=== PATIENT | female | born 1955 | race Caucasian/White ===

== ENCOUNTER → 2016-08-12 | Outpatient (CLI) | payer BC ==
--- NOTE | 2016-08-12 22:21 | US ---
EXAMINATION TYPE: US kidneys/renal and bladder DATE OF EXAM: 08/12/2016 5:07 PM COMPARISON: NONE CLINICAL HISTORY: 61-year-old female with abnormal renal functions TECHNIQUE: Multiple sonographic images of the kidneys and bladder were acquired. FINDINGS: Right Kidney: 9.3 x 4.3 x 4.0 cm without hydronephrosis. Left Kidney: 9.2 x 5.2 x 3.7 cm without hydronephrosis. There is a tiny 9 mm lower pole cyst. Bladder: Underdistention of the bladder limits its evaluation. Bilateral Jets seen: Yes. Post Void Residual Volume: 17.4ml Normal Post Void Residual: yes IMPRESSION: 1. No hydronephrosis. 2. Tiny 9 mm left lower pole renal cyst. 3. Both ureteral jets are visualized. There is some post void residual volume in the bladder but the volume falls within the normal range (<50 mL).
== END | disposition home or self-care (01) ==
LOC: RADUSWWP 16:02
PROVIDERS: ATTEND Family Medicine
DX: N28.1 Cyst of kidney, acquired (principal); N18.3 Chronic kidney disease, stage 3 (moderate)
CPT/HCPCS: 76770

== ENCOUNTER → 2016-10-01 | Outpatient (CLI) | payer BC ==
[2016-10-01 13:46] LABS: CH 27.9; CHCM 32.4; HDW 2.63; HGB 12.3 gm/dL (11.4-16.0); MCHC 32.5 g/dL (31.0-37.0); MCV 86.4 fL (80.0-100.0); Mean Platelet Volume 6.7; RDW 12.9 % (11.5-15.5); WBC 2.8 k/uL (3.8-10.6)
[2016-10-01 13:58] LABS: ALT 31 U/L (9-52); AST 29 U/L (14-36); Alkaline Phosphatase 46 U/L (38-126); Anion Gap 15 mmol/L; Blood Urea Nitrogen 28 mg/dL (7-17); Calcium 10.8 mg/dL (8.4-10.2); Carbon Dioxide 25 mmol/L (22-30); Chloride 99 mmol/L (98-107); Glucose 196 mg/dL (74-99); Non-African American GFR(MDRD) 50 (>60 ml/min/1.73 sqM); Phosphorous 3.7 mg/dL (2.5-4.5); Potassium 4.2 mmol/L (3.5-5.1); Sodium 139 mmol/L (137-145); Total Bilirubin 0.6 mg/dL (0.2-1.3); Total Protein 7.9 g/dL (6.3-8.2)
[2016-10-01 14:02] LABS: Appearance,Urine Cloudy (Clear); Bilirubin,Urine Negative (Negative); Glucose,Urine (UA) 3+ (Negative); Ketones,Urine Negative (Negative); Leukocyte Esterase,Urine Small (Negative); Mucus,Urine Rare /hpf; Nitrite,Urine Negative (Negative); PH, Urine 6.5 (5.0-8.0); Particle Count 7827; Protein,Urine Negative (Negative); RBC,Urine 3 /hpf (0-5); UA Billing (MACRO vs. MICRO) MICRO; Urobilinogen,Urine <2.0 mg/dL (<2.0); WBC,Urine 4 /hpf (0-5)
== END | disposition home or self-care (01) ==
LOC: LABWHC1 13:13
PROVIDERS: ATTEND Internal Medicine Nephrology
DX: D64.9 Anemia, unspecified (principal); E83.39 Other disorders of phosphorus metabolism; N39.0 Urinary tract infection, site not specified
CPT/HCPCS: 36415; 80053; 81001; 84100; 85027

== ENCOUNTER → 2016-12-21 | Outpatient (CLI) | payer BC ==
--- NOTE | 2016-12-21 12:23 | MR ---
EXAMINATION TYPE: MR shoulder LT wo con DATE OF EXAM: 12/21/2016 7:42 AM COMPARISON: NONE HISTORY: 61-year-old female with left shoulder pain TECHNIQUE: Multiplanar, multisequence imaging of the left shoulder is performed without contrast. FINDINGS: Long head biceps tendon appears intact and appropriately situated along the bicipital groove. Subscapularis tendon is intact. Moderate degenerative joint space narrowing and marginal spurring at the acromioclavicular joint. The re is preserved fat plane with the underlying myotendinous junction of the supraspinatus. There is slight inhomogeneous signal of the supraspinatus tendon. There appears to be minimal articul ar sided fraying proximal to the footprint, coronal image 11 and sagittal T2 FS image 12. There is no high-grade partial or full-thickness tear of either the supraspinatus or infraspinatus tendons. There is a small effusion within the subacromial/subdeltoid bursa, thickening of the coracohumeral li gament at 3.3 mm, edematous change in the adjacent rotator cuff interval, and edematous thickening of the axillary recess. Physiologic glenohumeral joint effusion. The glenohumeral joint remains intact. Possible small tear of the posterior inferior glenoid labrum, axial image 10. No paralabral cyst. No atrophy of the rotator cuff musculature. No os acromiale or Hill-Sachs deformity. No suspicious bone marrow replacement. IMPRESSION: 1. Thickening of the coracohumeral ligament, edematous change in the adjacent rotator cuff interval, edematous thickening of the axillary recess, and mild subacromial/subdeltoid bursitis. In the absence of injury, constellation of findings can be seen in the setting of adhesive capsulitis. Clinically c orrelate. 2. Some articular sided fraying of the supraspinatus tendon proximal to the footprint. No high-grade partial or full-thickness rotator cuff tear. 3. Moderate AC joint osteoarthrosis.
== END | disposition home or self-care (01) ==
LOC: RADMRIMAIN 07:04
PROVIDERS: ATTEND Family Medicine
DX: M19.012 Primary osteoarthritis, left shoulder (principal); M24.212 Disorder of ligament, left shoulder; R60.0 Localized edema

== ENCOUNTER → 2016-12-30 | Outpatient (CLI) | payer BC ==
[2016-12-30 08:22] LABS: Basophils % (A) 1 %; CH 27.8; Eosinophils # (A) 0.1 k/uL (0-0.7); Eosinophils % (A) 5 %; HCT 34.6 % (34.0-46.0); HDW 2.72; HGB 11.3 gm/dL (11.4-16.0); Luc # (Auto) 0.11; Luc % (Auto) 4; Lymphocytes # (A) 0.9 k/uL (1.0-4.8); Lymphocytes % (A) 29 %; MCH 28.6 pg (25.0-35.0); MCHC 32.7 g/dL (31.0-37.0); MCV 87.3 fL (80.0-100.0); Mean Platelet Volume 6.5; Monocytes # (A) 0.2 k/uL (0-1.0); Monocytes % (A) 8 %; Neutrophils # (A) 1.6 k/uL (1.3-7.7); Neutrophils % (A) 54 %; RBC 3.97 m/uL (3.80-5.40); RDW 13.9 % (11.5-15.5); WBC (Perox) 3.11
[2016-12-30 08:30] LABS: Appearance,Urine Clear (Clear); Bilirubin,Urine Negative (Negative); Glucose,Urine (UA) Negative (Negative); Ketones,Urine Negative (Negative); Leukocyte Esterase,Urine Negative (Negative); Nitrite,Urine Negative (Negative); Protein,Urine Negative (Negative); Specific Gravity,Urine 1.012 (1.001-1.035); UA Billing (MACRO vs. MICRO) CHEM; Urobilinogen,Urine <2.0 mg/dL (<2.0)
[2016-12-30 11:42] LABS: Anion Gap 11 mmol/L; Blood Urea Nitrogen 22 mg/dL (7-17); Calcium 9.8 mg/dL (8.4-10.2); Carbon Dioxide 24 mmol/L (22-30); Chloride 103 mmol/L (98-107); Glucose 163 mg/dL (74-99); Iron 68 ug/dL (37-170); Magnesium 1.2 mg/dL (1.6-2.3); Non-African American GFR(MDRD) 56 (>60 ml/min/1.73 sqM); Phosphorous 3.4 mg/dL (2.5-4.5); Potassium 4.9 mmol/L (3.5-5.1); Sodium 138 mmol/L (137-145); Uric Acid 4.9 mg/dL (3.7-7.4)
[2016-12-30 11:51] LABS: % Iron Saturation 16.3 % (20-50); Total Iron Binding Capacity 417 ug/dL (265-497)
== END | disposition home or self-care (01) ==
LOC: LABWHC1 07:25
PROVIDERS: ATTEND Internal Medicine Nephrology
DX: N18.3 Chronic kidney disease, stage 3 (moderate) (principal); D64.9 Anemia, unspecified; E55.9 Vitamin D deficiency, unspecified; E21.3 Hyperparathyroidism, unspecified; M10.9 Gout, unspecified; N39.0 Urinary tract infection, site not specified
CPT/HCPCS: 36415; 80048; 81003; 82306; 82728; 83540; 83550; 83735; 83970; 84100; 84165; 84550; 85025; 86335

== ENCOUNTER → 2017-06-11 | Outpatient (CLI) | payer BC ==
[2017-06-11 13:27] LABS: Anion Gap 13 mmol/L; Blood Urea Nitrogen 19 mg/dL (7-17); Calcium 9.7 mg/dL (8.4-10.2); Carbon Dioxide 22 mmol/L (22-30); Chloride 103 mmol/L (98-107); Glucose 113 mg/dL (74-99); Non-African American GFR(MDRD) >60 (>60 ml/min/1.73 sqM); Potassium 4.2 mmol/L (3.5-5.1); Sodium 138 mmol/L (137-145)
--- NOTE | 2017-06-11 14:26 | CT ---
EXAMINATION TYPE: CT angio chest DATE OF EXAM: 06/11/2017 COMPARISON: Chest radiograph dated 11/17/[address] chest dated 08/16/2012. HISTORY: Patient complains of difficulty breathing and recent diagnosis of bronchitis. History of marybeth coidosis. CT DLP: 253.6 mGycm. Automated Exposure Control for Dose Reduction was Utilized. CONTRAST: CTA scan of the thorax is performed with IV Contrast, patient injected with 100 mL of Omnipaque 350, pulmonary embolism protocol. MIP Images are created on CT scanner and reviewed. FINDINGS: LUNGS: The lungs are grossly clear, there is no concerning parenchymal mass or nodule identified. 5 mm pulmonary nodule within the right lower lobe on series 5 image 60 has not enlarged in comparison t o the exam of 08/06/2012 and should be considered benign. Left upper lobe 4 mm pulmonary nodule and adj acent 2 mm pulmonary nodule are seen on series 5 image 26 and 25. These are not definitely present on the prior examination. Areas of pleural-parenchymal scarring within the left upper lobe are unchange d from the prior. Perifissural nodule within the right upper lobe and 4 mm is also unchanged dating b ack to 2012 and should be considered benign. There is no pleural effusion or pneumothorax seen. The tracheobronchial tree is patent. MEDIASTINUM: There is satisfactory enhancement of the pulmonary artery and its branches, there is no CT evidence for pulmonary embolism. Subcarinal and right hilar lymph nodes are mildly enlarged measur ing 1.0 and 1.1 cm in short axis. Small low-density pericardial effusion measures 7 mm in greatest th ickness. No cardiomegaly or pericardial effusion is seen. OTHER: There is a moderate-sized hiatal hernia with distal esophageal mucosal thickening, partially r elated to incomplete distention but also could be related to esophagitis from gastroesophageal reflux given the size of the more distal hiatal hernia. There is a macronodular contour of the hepatic surf yvonne, favored to represent underlying hepatocellular disease. Cholecystectomy clips are partially visu alized. Dystrophic calcifications and surgical clips are seen within the right breast. There is an ex aggerated thoracic kyphosis and multilevel mild degenerative changes of the thoracic spine. IMPRESSION: 1. No evidence of pulmonary embolus. 2. No focal consolidation or pleural effusion within the lungs. 3. Mildly prominent mediastinal adenopathy and few scattered subcentimeter parenchymal nodules as wel l as mild interstitial prominence may relate to the patient's underlying history of sarcoidosis state d on the chest radiograph 11/17/2016. 4. Macronodular contour the liver compatible with underlying hepatic cirrhosis.
== END | disposition home or self-care (01) ==
LOC: RADCTMAIN 12:37
PROVIDERS: ATTEND Internal Medicine Critical Care Medicine
DX: R59.0 Localized enlarged lymph nodes (principal); R91.1 Solitary pulmonary nodule; J98.4 Other disorders of lung; Z88.0 Allergy status to penicillin; Z88.6 Allergy status to analgesic agent
CPT/HCPCS: 80048; 71275; 36415; Q9967

== ENCOUNTER → 2017-11-19 | Outpatient (CLI) | payer BC ==
[2017-11-19 10:38] LABS: Amorphous Sediment,Urine Rare /hpf; Appearance,Urine Clear (Clear); Bilirubin,Urine Negative (Negative); Blood,Urine Negative (Negative); Color,Urine Light Yellow; Glucose,Urine (UA) Negative (Negative); Ketones,Urine Negative (Negative); Leukocyte Esterase,Urine Trace (Negative); Mucus,Urine Rare /hpf; Nitrite,Urine Negative (Negative); Protein,Urine Negative (Negative); Specific Gravity,Urine 1.009 (1.001-1.035); Squamous Epithelial Cell,Urine <1 /hpf (0-4); Urobilinogen,Urine <2.0 mg/dL (<2.0); WBC,Urine 2 /hpf (0-5)
[2017-11-19 10:40] LABS: Basophils % (A) 1 %; Eosinophils # (A) 0.1 k/uL (0-0.7); Eosinophils % (A) 3 %; HCT 37.6 % (34.0-46.0); HGB 12.2 gm/dL (11.4-16.0); Lymphocytes # (A) 0.9 k/uL (1.0-4.8); Lymphocytes % (A) 24 %; MCH 27.5 pg (25.0-35.0); MCHC 32.4 g/dL (31.0-37.0); MCV 85.1 fL (80.0-100.0); Mean Platelet Volume 6.5; Monocytes # (A) 0.3 k/uL (0-1.0); Monocytes % (A) 7 %; Neutrophils # (A) 2.3 k/uL (1.3-7.7); Neutrophils % (A) 61 %; Platelet Count 399 k/uL (150-450); RBC 4.41 m/uL (3.80-5.40); RDW 13.5 % (11.5-15.5); WBC 3.8 k/uL (3.8-10.6)
[2017-11-19 10:47] LABS: Albumin 4.6 g/dL (3.5-5.0); Calcium 10.3 mg/dL (8.4-10.2); Magnesium 1.1 mg/dL (1.6-2.3); Potassium 4.7 mmol/L (3.5-5.1); Total Bilirubin 0.3 mg/dL (0.2-1.3); Uric Acid 4.9 mg/dL (3.7-7.4)
[2017-11-19 11:03] LABS: T4, Free (Free Thyroxine) 1.37 ng/dL (0.78-2.19)
[2017-11-19 17:11] LABS: Iron Saturation 11.42 (12.00-45.00)
[2017-11-19 17:19] LABS: Hemoglobin A1C 7.6 % (4.0-6.0)
[2017-11-19 17:20] LABS: Vitamin D 25 Hydroxy 38.8 ng/mL (30.0-100.0)
[2017-11-19 17:53] LABS: Parathyroid Hormone Intact 21.4 pg/mL (14.0-72.0)
== END | disposition home or self-care (01) ==
LOC: LABWHC1 09:49
PROVIDERS: ATTEND Nurse Practitioner Family
DX: E55.9 Vitamin D deficiency, unspecified (principal); N39.0 Urinary tract infection, site not specified; M10.9 Gout, unspecified; E21.3 Hyperparathyroidism, unspecified; N17.9 Acute kidney failure, unspecified; E61.1 Iron deficiency; D64.9 Anemia, unspecified; E78.4 Other hyperlipidemia; J44.9 Chronic obstructive pulmonary disease, unspecified; F32.1 Major depressive disorder, single episode, moderate; E11.65 Type 2 diabetes mellitus with hyperglycemia
CPT/HCPCS: 36415; 80053; 80061; 81001; 82306; 82728; 83036; 83540; 83550; 83735; 83970; 84100; 84439; 84443; 84550; 85025

== ENCOUNTER → 2019-03-28 | Outpatient (CLI) | payer BC ==
[2019-03-28 08:08] LABS: Basophils % (A) 1 %; Eosinophils # (A) 0.2 k/uL (0-0.7); Eosinophils % (A) 3 %; HCT 37.6 % (34.0-46.0); HGB 12.2 gm/dL (11.4-16.0); Lymphocytes # (A) 1.4 k/uL (1.0-4.8); Lymphocytes % (A) 26 %; MCH 27.7 pg (25.0-35.0); MCHC 32.5 g/dL (31.0-37.0); Mean Platelet Volume 6.7; Monocytes # (A) 0.5 k/uL (0-1.0); Monocytes % (A) 9 %; Neutrophils % (A) 57 %; Platelet Count 429 k/uL (150-450); RBC 4.42 m/uL (3.80-5.40); RDW 14.5 % (11.5-15.5); WBC 5.3 k/uL (3.8-10.6)
--- NOTE | 2019-03-28 08:27 | XR ---
EXAMINATION TYPE: XR knee complete RT DATE OF EXAM: 03/28/2019 COMPARISON: NONE HISTORY: Right knee pain TECHNIQUE: Four views are submitted. FINDINGS: There is narrowing of the medial compartment of the knee joint with a chronic appearing deformity of the medial tibial plateau. Hypertrophic change and narrowing of patellofemoral joint. Small amount of fluid in the suprapatellar bursa. Osseous structures are intact. No acute fracture seen. IMPRESSION: 1. Osteoarthritis. Findings are suggestive of prior trauma involving the medial tibial plateau.
[2019-03-28 12:05] LABS: T4, Free (Free Thyroxine) 1.3 ng/dL (0.80-1.80)
[2019-03-28 12:47] LABS: Hemoglobin A1C 7.2 % (4.0-6.0)
[2019-03-28 12:48] LABS: African American GFR (CKD) 60.6 (60.0-200.0); Albumin 4.5 g/dL (3.80-4.90); Albumin/Globulin Ratio 2.5 (1.60-3.17); Anion Gap 11.8 mmol/L (4.00-12.00); BUN/Creat Ratio 28.18 Ratio (12.00-20.00); Calcium 10.2 mg/dL (8.7-10.3); Carbon Dioxide 22.2 mmol/L (21.6-31.8); Chol/HDL Ratio 3.15; Globulin 1.8 g/dL (1.6-3.3); LDL Cholesterol,Calculated 58.4 mg/dL (0.0-131.0); Potassium 5.6 mmol/L (3.5-5.5); Total Bilirubin 0.2 mg/dL (0.2-1.2); Total Protein 6.3 g/dL (6.2-8.2); VLDL Calculation 40.6 mg/dL (5.00-40.00)
[2019-03-28 12:52] LABS: Magnesium 1.4 mg/dL (1.5-2.4)
== END | disposition home or self-care (01) ==
LOC: LABWHC1 07:28
PROVIDERS: ATTEND Family Medicine
DX: M17.11 Unilateral primary osteoarthritis, right knee (principal); Z00.00 Encounter for general adult medical examination without abnormal findings; I10 Essential (primary) hypertension
CPT/HCPCS: 36415; 80053; 80061; 83036; 83735; 84439; 84443; 85025

== ENCOUNTER → 2019-03-28 | Outpatient (CLI) | payer BC | END | disposition home or self-care (01) | LOC: RADXRMAIN 07:33 | PROVIDERS: ATTEND Family Medicine | DX: Z53.9 Procedure and treatment not carried out, unspecified reason (principal) ==

== ENCOUNTER → 2019-06-12 | Outpatient (CLI) | payer MEDICARE, BC ==
[2019-06-12 08:45] LABS: HCT 35.6 % (34.0-46.0); HGB 11.3 gm/dL (11.4-16.0); MCH 27.6 pg (25.0-35.0); MCHC 31.6 g/dL (31.0-37.0); MCV 87.5 fL (80.0-100.0); Mean Platelet Volume 6.1; Platelet Count 388 k/uL (150-450); RBC 4.07 m/uL (3.80-5.40); RDW 14.4 % (11.5-15.5); WBC 3.4 k/uL (3.8-10.6)
[2019-06-12 09:29] LABS: Potassium 5.1 mmol/L (3.5-5.1)
== END | disposition home or self-care (01) ==
LOC: LABPAT 08:00
PROVIDERS: ATTEND Internal Medicine Cardiovascular Disease
DX: Z01.812 Encounter for preprocedural laboratory examination (principal); I25.10 Atherosclerotic heart disease of native coronary artery without angina pectoris
CPT/HCPCS: 36415; 80051; 82565; 84520; 85027

== ENCOUNTER 2019-06-15 06:13 | Day surgery (SDC) | payer MEDICARE, BC ==
[2019-06-15] MEDS ORDERED: NITROGLYCERIN SL TABS 0.4 MG TAB SUBLINGUAL PRN (06:22)
[2019-06-15] MEDS ORDERED: ALPRAZolam 0.25 MG TAB PO PRN (06:22)
[2019-06-15] MEDS ORDERED: ALPRAZolam 0.5 MG TAB PO PRN (06:22)
[2019-06-15] MEDS ORDERED: SODIUM CHLORIDE 0.9% 1,000 ML in EMPTY BAG 1 BAG IV ONE (06:22)
[2019-06-15] MEDS ORDERED: ATORVASTATIN 80 MG TAB PO ONE (07:00)
[2019-06-15] MEDS ORDERED: ASPIRIN 325 MG TAB PO ONE (07:00)
[2019-06-15 07:12] LABS: Glucose,Whole Blood 127 mg/dL (75-99)
[2019-06-15] MEDS ORDERED: LIDOCAINE 1% INJ 10MG/ML (20 ML MDV) ONE (07:22)
[2019-06-15] MEDS ORDERED: fentaNYL (PF) 50 MCG/ML 2 ML AMP ONE (07:22)
[2019-06-15] MEDS ORDERED: fentaNYL (PF) 50 MCG/ML 2 ML AMP IV ONE (07:42)
[2019-06-15] MEDS ORDERED: MIDAZOLAM 2 MG/2 ML VIAL IVP ONE (07:42)
[2019-06-15] MEDS ORDERED: LIDOCAINE 2% (PF) 20 MG/ML 10 ML AMP SQ ONE (07:43)
[2019-06-15] MEDS ORDERED: IOPAMIDOL-370 125ML BTL INJ ONE (07:53)
[2019-06-15] MEDS ORDERED: RX INFO: IV CONTRAST WAS GIVEN 1 EACH MISC MISCELLANE PRN (08:06)
--- NOTE | 2019-06-15 08:13 | P.CARDCATH ---
Date of Procedure: 06/15/19 Preoperative Diagnosis: Positive stress test Postoperative Diagnosis: Moderate disease involving the mid LAD and calcification of the coronary system Procedure(s) Performed: Left heart catheterization without left ventriculography Description of Procedure: HISTORY: This is a 64-year-old female with multiple risk factors including insulin-dependent diabetes mellitus and hypercholesterolemia and hypertension who was found to have evidence of calcification of the coronary system on the MRI scan of the lungs. Subsequent stress test showed small reversible defect involving the anteroapical segment. Patient is advised to have cardiac catheterization for definitive diagnosis. CONSENT:I have discussed the risks, benefits and alternative therapies for the above-mentioned procedure and for both sedation/analgesia as well as necessary blood product administration, if indicated, as they pertain to this patient. The patient has indicated understanding and acceptance of the risks and procedures discussed. PROCEDURE: Patient was brought to the lab in a fasting state. Patient was given some IV sedation. The right groin is infiltrated with lidocaine and right femoral artery was entered using Seldinger technique. A 6-Urdu catheter was left in place and selective coronary arteriography was performed. Patient tolerated the procedure well. Femoral angiogram was performed and Angio-Seal was applied for hemostasis. No immediate complications were noted and patient was transferred to [facility] in a stable condition Conscious Sedation: Versed 1mg Fentanyl 50 g Duration 15minutes HEMODYNAMICS: The aortic pressure is about 130/70. Left ventricular end- diastolic pressure was about 15. There was no gradient across the aortic valve SELECTIVE CORONARY ARTERIOGRAPHY: LEFT MAIN: Shows some calcification but no obstructive disease THE LEFT ANTERIOR DESCENDING CORONARY ARTERY:. Good caliber vessel with a long about 50% stenosis involving the proximal to mid segment. There is ectatic area in the mid segment. The rest of the LAD is free of occlusive disease THE LEFT CIRCUMFLEX AND IS CORONARY ARTERY:. Good caliber vessel. Free of occlusive disease THE RIGHT CORONARY ARTERY:. Dominant vessel giving rise to PDA. The RCA and its branches are free of occlusive disease LEFT VENTRICULOGRAPHY: Not performed FINAL IMPRESSION: Moderate disease involving the proximal to mid LAD. Rest of the coronary system is free of any focal occlusive disease except calcification of the left main and proximal LAD PLAN: Maximum medical therapy and risk factor modification PROGNOSIS:. Fair
[2019-06-15] MEDS: ACETAMINOPHEN TAB 325 MG TAB PO PRN (12:49)
[2019-06-15 12:56] LABS: Glucose,Whole Blood 126 mg/dL (75-99)
[2019-06-15 13:46] VITALS: BMI 27.6
[2019-06-15] MEDS ORDERED: HYDROmorphone 0.5 MG/0.5 ML SYRINGE IVP STA (14:50)
[2019-06-15] MEDS: SODIUM CHLORIDE 0.9% 1,000 ML IV SCH ×2 (15:40→22:15)
[2019-06-15 16:50] LABS: Glucose,Whole Blood 171 mg/dL (75-99)
[2019-06-15] MEDS: INSULIN ASPART (NovoLOG) 100 UNIT/ML VIAL SQ SCH ×2 (18:28→21:35)
[2019-06-15] MEDS ORDERED: ACETAMINOPHEN TAB 500 MG TAB PO PRN (18:56)
[2019-06-15] MEDS ORDERED: clonazePAM 0.5 MG TAB PO PRN (18:56)
[2019-06-15 20:11] LABS: Glucose,Whole Blood 187 mg/dL (75-99)
[2019-06-15] MEDS ORDERED: INSULIN DETEMIR (LEVEMIR) 100 UNIT/ML SYR SQ SCH (21:00)
[2019-06-15] MEDS ORDERED: MAGNESIUM OXIDE 400 MG TAB PO SCH (21:00)
[2019-06-16 06:18] LABS: Glucose,Whole Blood 94 mg/dL (75-99)
[2019-06-16 06:42] LABS: Basophils % (A) 1 %; Eosinophils # (A) 0.1 k/uL (0-0.7); Eosinophils % (A) 4 %; HCT 30.3 % (34.0-46.0); Lymphocytes % (A) 28 %; MCH 28.7 pg (25.0-35.0); MCHC 32.9 g/dL (31.0-37.0); MCV 87.2 fL (80.0-100.0); Mean Platelet Volume 5.9; Monocytes # (A) 0.3 k/uL (0-1.0); Monocytes % (A) 8 %; Neutrophils # (A) 2.1 k/uL (1.3-7.7); Neutrophils % (A) 57 %; Platelet Count 379 k/uL (150-450); RBC 3.48 m/uL (3.80-5.40); RDW 13.9 % (11.5-15.5); WBC 3.7 k/uL (3.8-10.6)
[2019-06-16] MEDS: INSULIN ASPART (NovoLOG) 100 UNIT/ML VIAL SQ SCH ×2 (07:55→12:07)
[2019-06-16 08:18] VITALS: BP 125/60; PULSE 68; RESP 16; TEMP 98
[2019-06-16] MEDS: SODIUM CHLORIDE 0.9% 1,000 ML IV SCH (08:47)
[2019-06-16] MEDS ORDERED: FENOFIBRATE 160 MG TAB PO SCH (09:00)
[2019-06-16] MEDS ORDERED: FAMOTIDINE 20 MG TAB PO SCH (09:00)
[2019-06-16] MEDS ORDERED: METOPROLOL SUCCINATE (ER) 25 MG TAB.ER.24H PO SCH (09:00)
[2019-06-16] MEDS ORDERED: ATORVASTATIN 20 MG TAB PO SCH (09:00)
[2019-06-16] MEDS ORDERED: LISINOPRIL 2.5 MG TAB PO SCH (09:00)
[2019-06-16] MEDS ORDERED: ASPIRIN 81 MG PO SCH (09:00)
[2019-06-16] MEDS ORDERED: FERROUS SULFATE 325 MG TAB PO SCH (09:00)
--- NOTE | 2019-06-16 09:12 | P.PN ---
Subjective Progress Note Date: 06/16/19 Principal diagnosis: Positive stress test, status post cardiac catheterization bleeding from the puncture site with small hematoma This patient had a cardiac catheterization yesterday as an outpatient. She was found to have about 50% stenosis of the left anterior descending coronary artery. Patient had a Angio-Seal procedure after the procedure. When she was in extended stay unit, she developed evidence of bleeding and hematoma from the puncture site. Patient required manual compression and also Femstat. Patient was observed overnight. Her hemodynamics remained stable. Complaints of mild soreness at the site. There is ecchymosis with a small hematoma around the p uncture site. The pulse in the right foot is bounding. No complaints and back pain, chest pain. Patient to hemoglobin is about 10 g. It was 11 g before this could be partly dilutional and partly from blood loss. Patient is being discharged home to continue home medications. Follow-up in the office in one week Objective - Vital Signs Vital signs: Vital Signs Temp 98.0 F 06/16/19 08:00 Pulse 68 06/16/19 08:00 Resp 16 06/16/19 08:00 BP 125/60 06/16/19 08:00 Pulse Ox 100 06/16/19 08:00 Intake & Output 06/15/19 06/16/19 06/16/19 18:59 06:59 18:59 Intake Total 792 315 Output Total 300 1250 Balance 492 -1250 315 Weight 75.2 kg Intake: IV 450 75 Sodium Chloride 0.9% 1, 0 75 000 ml @ 75 mls/hr IV . [id number] [facility] Rx#:[id number] Oral 342 240 Output: Urine 300 1250 Other: Voiding Method Bedpan # Voids 1 1 - Exam GENERAL EXAM: Patient is alert and oriented and doesn't appear to be in any acute distress HEENT: Normocephalic. Normal reaction of pupils, equal size, normal range of extraocular motion. No erythema or exudates in the throat. NECK: No masses, no nuchal rigidity. CHEST: No chest wall deformity. LUNGS: [Equal air entry with no crackles or wheeze.] HEART: [S1 and S2 normal with no audible mumurs or gallops. Regular rhythm, femorals equal on both sides..] ABDOMEN: No hepatosplenomegaly, normal bowel sounds, no guarding or rigidity. SKIN: No rashes CENTRAL NERVOUS SYSTEM: No focal deficits. EXTREMITIES: [No cyanosis, clubbing or edema. Groin: Soft. There is extensive ecchymosis in the upper thigh and also in the lower abdomen. Small hematoma. Pulses in the right foot is well preserved] - Labs CBC & Chem 7: 06/16/19 06:18 Labs: Abnormal Lab Results - Last 24 Hours (Table) 06/15/19 06/15/19 06/15/19 Range/Units 12:53 16:48 20:10 WBC (3.8-10.6) k/uL RBC (3.80-5.40) m/uL Hgb (11.4-16.0) gm/dL Hct (34.0-46.0) % POC Glucose (mg/dL) 126 H 171 H 187 H (75-99) mg/dL 06/16/19 Range/Units 06:18 WBC 3.7 L (3.8-10.6) k/uL RBC 3.48 L (3.80-5.40) m/uL Hgb 10.0 L (11.4-16.0) gm/dL Hct 30.3 L (34.0-46.0) % POC Glucose (mg/dL) (75-99) mg/dL Assessment and Plan (1) Status post cardiac catheterization Current Visit: Yes Status: Acute Code(s): Z98.890 - OTHER SPECIFIED POSTPROCEDURAL STATES SNOMED Code(s): 04132781888199 (2) Hematoma Current Visit: Yes Status: Acute Code(s): T14.8XXA - OTHER INJURY OF UNSPECIFIED BODY REGION, INITIAL ENCOUNTER SNOMED Code(s): 012734212 (3) CAD (coronary artery disease) Current Visit: Yes Status: Acute Code(s): I25.10 - ATHSCL HEART DISEASE OF [place] CORONARY ARTERY W/O ANG PCTRS SNOMED Code(s): 01247436 Plan: Patient is being discharged home in stable status. Patient is advised to avoid any heavy lifting, pushing, pulling and keep the leg extended and not to bend it for prolonged times. If she does any further bleeding or pain. Patient will call us. Follow-up in the office in one week
[2019-06-16] MEDS: ACETAMINOPHEN TAB 325 MG TAB PO PRN (12:06)
[2019-06-16 12:13] LABS: Glucose,Whole Blood 121 mg/dL (75-99)
== END 2019-06-16 14:12 | disposition home or self-care (01) ==
LOC: CATHCVL 06:13 → 3SCARD 12:30 → CATHCVL 06-16 14:12
PROVIDERS: ATTEND Internal Medicine Cardiovascular Disease
DX: I25.10 Atherosclerotic heart disease of native coronary artery without angina pectoris (principal); L76.32 Postprocedural hematoma of skin and subcutaneous tissue following other procedure; I25.41 Coronary artery aneurysm; E78.00 Pure hypercholesterolemia, unspecified; I10 Essential (primary) hypertension; D86.9 Sarcoidosis, unspecified; E11.9 Type 2 diabetes mellitus without complications; E78.5 Hyperlipidemia, unspecified; Z85.3 Personal history of malignant neoplasm of breast; Z79.899 Other long term (current) drug therapy; Z79.4 Long term (current) use of insulin; Z88.5 Allergy status to narcotic agent; Z88.0 Allergy status to penicillin
CPT/HCPCS: 93458; 85025; C1760; C1894; C1769 ×2; J2250; J2001; J3010; J1170; Q9967

== ENCOUNTER → 2020-03-25 | Outpatient (CLI) | payer MEDICARE, BC ==
--- NOTE | 2020-03-25 08:50 | XR ---
EXAMINATION TYPE: XR wrist limited RT, XR hand limited RT DATE OF EXAM: 03/25/2020 CLINICAL HISTORY: Pain. No known injury. TECHNIQUE: Frontal and lateral images of the right wrist are obtained. Frontal and lateral images of the right hand are obtained. COMPARISON: None FINDINGS: There is no acute fracture/dislocation evident in the right hand or wrist. There is chond rocalcinosis of the radiocarpal and ulnocarpal joint space. There is joint space narrowing and spurri ng of the second and third metacarpal phalangeal joints. There is a hooked osteophyte formation of th e third metacarpal head. There are subchondral cysts of the intercarpal joints.. There is spurring of the proximal and distal interphalangeal joints of the second, third, and fifth digits. No significan t soft tissue swelling. IMPRESSION: 1. Chondrocalcinosis, intercarpal subchondral cysts, and hooked osteophyte of the third metacarpophal angeal joint. 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 2. Spurring of the proximal and distal interphalangeal joints may represent component of osteoarthrit is.
== END | disposition home or self-care (01) ==
LOC: RADXRMAIN 07:29
PROVIDERS: ATTEND Family Medicine
DX: M11.241 Other chondrocalcinosis, right hand (principal); M25.731 Osteophyte, right wrist; M25.831 Other specified joint disorders, right wrist

== ENCOUNTER → 2020-06-11 | Outpatient (CLI) | payer MEDICARE, BC ==
--- NOTE | 2020-06-25 08:39 | MM ---
Reason for exam: additional evaluation requested from prior study. Last mammogram was performed 1 year and 8 months ago. History: Patient is postmenopausal, has history of breast cancer at age 51, and had first child at age 36. Family history of breast cancer in maternal cousin and breast cancer in paternal grandmother. Malignant excisional biopsy of the right breast, August 30, 2006. Lumpectomy of the right breast, August 30, 2006. Malignant right mammotome panel of the right breast, July 30, 2006. Benign excisional biopsy of the right breast, February 27, 1998. Excisional biopsy of the right breast, 1993. Took tamoxifen for 4 years beginning at age 52. Physical Findings: Nurse did not find any significant physical abnormalities on exam. MG 3D Diag Mammo W/Cad BHARGAVI Bilateral CC and MLO view(s) were taken. Prior study comparison: October 05, 2018, mammogram, performed at [place]. July 31, 2015, bilateral MG 3d diag mammo w/cad BHARGAVI. October 04, 2013, CAD bilateral diagnostic mammogram. April 22, 2011, CAD bilateral diagnostic mammogram. October 30, 2009, bilateral diagnostic digital mammog. August 31, 2008, bilateral diagnostic digital mammog. The breast tissue is heterogeneously dense. This may lower the sensitivity of mammography. Finding: There are typically benign coarse calcifications in the upper outer quadrant, posterior position of the right breast. Asymmetric breast tissue greater in the left breast. Right upper outer quadrant posterior surgical changes. No significant changes in finding since October 05, 2018, October 30, 2009, August 31, 2008, April 22, 2011, October 04, 2013, and July 31, 2015. These results were verbally communicated with the patient on 06/24/20. ASSESSMENT: Benign, BI-RAD 2 RECOMMENDATION: Follow-up diagnostic mammogram in 1 year.
== END | disposition home or self-care (01) ==
LOC: RADMAMWWP 08:04
PROVIDERS: ATTEND Family Medicine
DX: Z08 Encounter for follow-up examination after completed treatment for malignant neoplasm (principal); Z85.3 Personal history of malignant neoplasm of breast
CPT/HCPCS: 77066; G0279; 77062

== ENCOUNTER → 2021-01-24 | Day surgery (SDC) | payer MEDICARE ==
[2021-01-23 12:56] VITALS: BMI 27.4
[~2021-01-24] MED LIST: LACTATED RINGERS 1,000 ML IV SCH; LIDOCAINE 1% (10MG/ML) FOR IV START INTRADERMA PRN; LIDOCAINE 1% INJ 10MG/ML (20 ML MDV) ONE; ONDANSETRON 4 MG/2 ML VIAL IVP ONE; ONDANSETRON 4 MG/2 ML VIAL ONE; PROPOFOL 10 MG/ML 20 ML VIAL IV ONE
[2021-01-24 07:50] VITALS: RESP 16; TEMP 98.2
[2021-01-24 08:00] LABS: Glucose,Whole Blood 127 mg/dL (75-99)
--- NOTE | 2021-01-24 08:22 | P.PCN ---
Date of Procedure: 01/24/21 Procedure(s) Performed: Brief history: Patient is a pleasant 65-year-old white female scheduled for an elective upper endoscopy as well as colonoscopy as a part of evaluation of iron deficiency anemia. She has long-standing history of GERD. Denies any rectal bleeding or melena. Procedure performed: Esophagogastroduodenoscopy with biopsy Colonoscopy Preoperative diagnosis: Iron deficiency anemia. Long-standing history of GERD Anesthesia: MAC Procedure: After informed consent was obtained from the patient was brought into the endoscopy unit and IV sedation was administered by anesthesia under continuous monitoring. Initially upper endoscopy was done. The Olympus GF 160 video endoscope was inserted inserted into the mouth and esophagus intubated without any difficulty and was gradually advanced into the stomach and duodenum and carefully examined. The bulb and second part of the duodenum appeared normal. Biopsies were done from the duodenum to rule out celiac disease The scope was then withdrawn into the stomach adequately insufflated with air and upon careful examination the antrum had mild gastritis and biopsies were done from this area. Thed body, cardia and fundus appeared normal. The scope was then withdrawn into the esophagus. Small hiatal hernia noted. The GE junction was located at 40 cm to the incisors. It appeared regular circumferential erythema and 2 superficial erosions consistent with LA grade B reflux esophagitis. Rest of the esophagus appeared normal. Patient tolerated the procedure well. At this time the patient continued to remain sedation. Initial digital rectal examination was normal. Olympus CF 160 video colonoscope was then inserted into the rectum and gradually advanced to the cecum without any difficulty. Careful examination was performed as the scope was gradually being withdrawn. The prep was excellent. The cecum, ascending colon, transverse colon, descending colon, sigmoid colon and rectum appeared normal. Moderate sigmoidal reticulosis. Retroflexion was performed in the rectum and no lesions were noted. Patient tolerated the procedure well. Impression: 1. Upper endoscopy revealed small hiatal hernia, LA grade B reflux esophagitis and mild antral gastritis 2. Colonoscopy revealed scattered sigmoid diverticulosis but no evidence of colitis or colorectal neoplasia. Recommendations: Findings of this examination were discussed with the patient as well as her family. She was advised to follow with the biopsy results. She will continue with her current medications and follow antireflux measures. She can have a repeat screening colonoscopy in 10 years.
[2021-01-24 08:45] VITALS: BP 118/73; PULSE 67
== END ==
LOC: ORWHC2ENDO 07:12
PROVIDERS: ATTEND Internal Medicine Gastroenterology
DX: D50.9 Iron deficiency anemia, unspecified (principal); K21.00 Gastro-esophageal reflux disease with esophagitis, without bleeding; K44.9 Diaphragmatic hernia without obstruction or gangrene; K29.50 Unspecified chronic gastritis without bleeding; Z88.0 Allergy status to penicillin; I10 Essential (primary) hypertension; E78.5 Hyperlipidemia, unspecified; E11.9 Type 2 diabetes mellitus without complications; D86.9 Sarcoidosis, unspecified; Z88.5 Allergy status to narcotic agent; Z79.899 Other long term (current) drug therapy
CPT/HCPCS: 88305; 45378; 43239; J2405; J2001; J2704

== ENCOUNTER → 2021-02-10 | Outpatient (CLI) | payer MEDICARE ==
[2021-02-10 12:14] LABS: Urine Creatinine 186.2 mg/dL
[2021-02-10 15:03] LABS: Hemoglobin A1C 6.7 % (4.0-6.0)
== END | disposition home or self-care (01) ==
LOC: LABWHC1 07:46
PROVIDERS: ATTEND Family Medicine
DX: E11.65 Type 2 diabetes mellitus with hyperglycemia (principal)
CPT/HCPCS: 36415; 82043; 82570; 83036

== ENCOUNTER → 2021-02-10 | Day surgery (SDC) | payer MEDICARE ==
[2021-02-07 14:48] VITALS: BMI 26.1
[~2021-02-10] MED LIST changes: -LIDOCAINE 1% (10MG/ML) FOR IV START INTRADERMA PRN; -LIDOCAINE 1% INJ 10MG/ML (20 ML MDV) ONE; -ONDANSETRON 4 MG/2 ML VIAL IVP ONE; -ONDANSETRON 4 MG/2 ML VIAL ONE; -PROPOFOL 10 MG/ML 20 ML VIAL IV ONE; +SIMETHICONE 40 MG/0.6 ML DROPS 2,000 MG/30 ML BOTTLE PO ONE
[2021-02-10 06:59] VITALS: BP 144/78; PULSE 80; RESP 20; TEMP 97.8
[2021-02-10 07:01] LABS: Glucose,Whole Blood 123 mg/dL (75-99)
== END ==
LOC: ORWHC2ENDO 06:27
PROVIDERS: ATTEND Internal Medicine Gastroenterology
DX: D50.9 Iron deficiency anemia, unspecified (principal)
CPT/HCPCS: 91110

== ENCOUNTER → 2021-05-29 | Outpatient (CLI) | payer MEDICARE ==
[2021-05-30 06:56] LABS: Anion Gap 15.9 mmol/L (4.00-12.00); BUN/Creat Ratio 29.2 Ratio (12.00-20.00); Blood Urea Nitrogen 29.2 mg/dL (9.0-27.0); Calcium 9.2 mg/dL (8.7-10.3); Carbon Dioxide 19.1 mmol/L (21.6-31.8); Non-African American GFR(CKD) 57.8 (60.0-200.0); Potassium 4.5 mmol/L (3.5-5.5)
== END | disposition home or self-care (01) ==
LOC: LABWHC1 08:38
PROVIDERS: ATTEND Family Medicine
DX: E11.65 Type 2 diabetes mellitus with hyperglycemia (principal)
CPT/HCPCS: 36415; 80048; 82043; 82570; 83036

== ENCOUNTER → 2021-12-11 | Outpatient (CLI) | payer MEDICARE ==
--- NOTE | 2021-12-12 14:33 | MM ---
Reason for exam: screening (asymptomatic). Last mammogram was performed 1 year and 6 months ago. History: Patient is postmenopausal, has history of breast cancer at age 51, and had first child at age 36. Family history of breast cancer in maternal cousin and breast cancer in paternal grandmother. Malignant excisional biopsy of the right breast, August 30, 2006. Lumpectomy of the right breast, August 30, 2006. Malignant right mammotome panel of the right breast, July 30, 2006. Benign excisional biopsy of the right breast, February 27, 1998. Excisional biopsy of the right breast, 1993. Took tamoxifen for 4 years beginning at age 52. Physical Findings: A clinical breast exam by your physician is recommended on an annual basis and results should be correlated with mammographic findings. MG 3D Screening Mammo W/Cad Bilateral CC and MLO view(s) were taken. Prior study comparison: June 11, 2020, bilateral MG 3d diag mammo w/cad BHARGAVI. October 05, 2018, mammogram, performed at [place]. Benign appearing bilateral calcifications. Post surgical changes on right breast, stable. No significant changes when compared with prior studies. ASSESSMENT: Benign, BI-RAD 2 RECOMMENDATION: Routine screening mammogram of both breasts in 1 year.
== END | disposition home or self-care (01) ==
LOC: RADMAMWWP 10:02
PROVIDERS: ATTEND Family Medicine
DX: Z12.31 Encounter for screening mammogram for malignant neoplasm of breast (principal); Z78.0 Asymptomatic menopausal state; Z85.3 Personal history of malignant neoplasm of breast; Z80.3 Family history of malignant neoplasm of breast
CPT/HCPCS: 77063; 77067

== ENCOUNTER → 2022-01-29 | Outpatient (CLI) | payer MEDICARE ==
[2022-01-29 10:30] LABS: HCT 36.7 % (37.2-46.3); HGB 11.4 g/dL (12.0-15.0); MCH 28.1 pg (27.0-32.0); MCHC 31.1 g/dL (32.0-37.0); MCV 90.6 fL (80.0-97.0); NRBC Per 100 WBC 0 /100 WBCS (0.0-0.0); Platelet Count 402 X 10*3/uL (140-440); RBC 4.05 X 10*6/uL (4.10-5.20); RDW 13.9 % (11.5-14.5); WBC 3.02 X 10*3/uL (4.50-10.00)
[2022-01-29 11:08] LABS: % Iron Saturation 16.41 (12.00-45.00); ALT 29 U/L (8-44); AST 25 U/L (13-35); African American GFR (CKD) 76.1 (60.0-200.0); Albumin 4.5 g/dL (3.8-4.9); Albumin/Globulin Ratio 2.05 (1.60-3.17); Alkaline Phosphatase 44 U/L (41-126); BUN/Creat Ratio 18.33 Ratio (12.00-20.00); Blood Urea Nitrogen 16.5 mg/dL (9.0-27.0); Calcium 9.8 mg/dL (8.7-10.3); Carbon Dioxide 22.4 mmol/L (20.0-27.5); Chloride 99 mmol/L (96-109); Chol/HDL Ratio 3.06 Ratio; Globulin 2.2 g/dL (1.6-3.3); Glucose 162 mg/dL (70-110); Iron 70 ug/dL (50-170); LDL Cholesterol,Calculated 73.3 mg/dL (0.0-131.0); Non-African American GFR(CKD) 65.7 (60.0-200.0); Potassium 4.4 mmol/L (3.5-5.5); Sodium 134 mmol/L (135-145); Total Iron Binding Capacity 424 ug/dL (228-460); Total Protein 6.7 g/dL (6.2-8.2)
== END | disposition home or self-care (01) ==
LOC: LABWHC1 07:53
PROVIDERS: ATTEND Family Medicine
DX: Z00.00 Encounter for general adult medical examination without abnormal findings (principal); C50.919 Malignant neoplasm of unspecified site of unspecified female breast; I10 Essential (primary) hypertension; E11.9 Type 2 diabetes mellitus without complications; M19.90 Unspecified osteoarthritis, unspecified site; E78.00 Pure hypercholesterolemia, unspecified; G43.909 Migraine, unspecified, not intractable, without status migrainosus
CPT/HCPCS: 36415; 80053; 80061; 82306; 82728; 82746; 83036; 83540; 83550; 85027

== ENCOUNTER → 2022-05-04 | Outpatient (CLI) | payer MEDICARE ==
[2022-05-04 19:05] LABS: Urine Creatinine 73.7 mg/dL (28.0-217.0)
== END | disposition home or self-care (01) ==
LOC: LABWHC1 08:34
PROVIDERS: ATTEND Family Medicine
DX: E11.65 Type 2 diabetes mellitus with hyperglycemia (principal)
CPT/HCPCS: 36415; 82043; 82570; 83036

== ENCOUNTER → 2022-10-23 | Outpatient (CLI) | payer MEDICARE ==
--- NOTE | 2022-10-23 12:33 | CT ---
EXAMINATION TYPE: CT chest w con DATE OF EXAM: 10/23/2022 COMPARISON: 06/11/2017 HISTORY: sarcoidosis, hx of breast ca CT DLP: 210.5 mGycm Automated exposure control for dose reduction was used. TECHNIQUE: CT scan of the chest is performed with IV Contrast, patient injected with 100 mL of Isovue 300. MIP Images are created on CT scanner and reviewed. 3D reconstructed images are created on an independent workstation and reviewed. FINDINGS: LUNGS: The lungs are grossly clear, there is no concerning consolidative pneumonia identified. Ther e is no pleural effusion or pneumothorax seen. The tracheobronchial tree is patent. Stable 3 mm nodule right lower lobe axial image 28. Stable 2 mm left upper lobe nodule axial image 15 Stable 4 mm right upper lobe nodule axial image 15 Stable subpleural nodule 2 mm axial image 17 Stable 2 mm subpleural nodule left lower lobe is 30 Stable 2 mm subpleural nodule axial image 44 left lower lobe [place]ague ground glass and linear changes seen scattered throughout both lungs most available atelectasis . MEDIASTINUM: There are no greater than 1 cm hilar or mediastinal lymph nodes. No calcifications are seen involving the right cardiophrenic angle. Coronary artery calcification is seen and there is no diagnostic evidence of aortic aneurysm. Mediastinal and hilar lymph node calcifications compatible wi th granulomatous disease. There is a small hiatal hernia. Borderline 1 cm subcarinal lymph node measu red in short axis stable. There is mild cardiomegaly with coronary artery calcification and trace of pericardial fluid atherosclerotic change of the aorta.. OTHER: Post cholecystectomy changes are seen and there is hypertrophic and degenerative changes of t he spine. Calcifications and surgical clips in the right breast noted. IMPRESSION: 1. Chronic granulomatous changes and multiple scattered bilateral subcentimeter parenchymal nodules a re stable in appearance may relate to the patient's history of underlying sarcoidosis. 2. Borderline mediastinal lymphadenopathy stable 3. Coronary artery calcification and mild cardiomegaly.
== END | disposition home or self-care (01) ==
LOC: RADCTMAIN 10:58
PROVIDERS: ATTEND Internal Medicine Critical Care Medicine
DX: D86.0 Sarcoidosis of lung (principal); R91.8 Other nonspecific abnormal finding of lung field; I25.10 Atherosclerotic heart disease of native coronary artery without angina pectoris; I51.7 Cardiomegaly
CPT/HCPCS: 82565; 84520; 71260; 36415; Q9967

== ENCOUNTER → 2023-01-06 | Outpatient (CLI) | payer MEDICARE ==
--- NOTE | 2023-01-06 12:32 | XR ---
EXAMINATION TYPE: XR cervical spine comp DATE OF EXAM: 01/06/2023 COMPARISON: NONE HISTORY: Pain TECHNIQUE: Four views are submitted. FINDINGS: The odontoid is intact. There are no compression deformities. The prevertebral soft tissue structur es are within normal limits. Diffuse osteopenia. Facet arthropathy at C6-C7 grade 1 anterolisthesis multilevel facet arthropathy noted. Multilevel bilateral foraminal protrusion. Lung apices clear. IMPRESSION: 1. Multilevel degenerative disc disease and facet arthropathy with grade 1 anterolisthesis C6 on C7. Recommend MRI. Probable bilateral multilevel foraminal encroachment.
== END | disposition home or self-care (01) ==
LOC: LABWHC1 11:54
PROVIDERS: ATTEND Family Medicine
DX: M43.12 Spondylolisthesis, cervical region (principal); M47.812 Spondylosis without myelopathy or radiculopathy, cervical region; M50.323 Other cervical disc degeneration at C6-C7 level
CPT/HCPCS: 72050

== ENCOUNTER → 2023-01-19 | Outpatient (CLI) | payer MEDICARE ==
[2023-01-20 05:20] LABS: Microalbumin Creatinine Ratio <29 mg/g Cr (0-30); Urine Creatinine 41.6 mg/dL (28.0-217.0)
== END | disposition home or self-care (01) ==
LOC: LABWHC1 07:57
PROVIDERS: ATTEND Family Medicine
DX: E11.65 Type 2 diabetes mellitus with hyperglycemia (principal)
CPT/HCPCS: 36415; 82043; 82570; 83036

== ENCOUNTER → 2023-01-26 | Outpatient (CLI) | payer MEDICARE ==
--- NOTE | 2023-01-26 12:21 | MR ---
EXAMINATION TYPE: MR cervical spine wo con DATE OF EXAM: 01/26/2023 INDICATION: Patient age: Female; 67 years old; Reason for study: M43.12 SPONDYLOLISTHESIS, CERVICAL REGION. Neck pain and headaches. COMPARISON: Radiographs 01/06/2023. TECHNIQUE: Multi planar, multi sequence imaging was performed utilizing: T1-weighted, T2-weighted, an d turbo inversion recovery imaging of the cervical spine. IV Contrast: None FINDINGS: Alignment: The cervical vertebral bodies have preserved heights. There is increased lordotic alignmen t. Bones: Multilevel disc degeneration changes throughout this spine with facet joint uncovertebral join t arthropathy. No abnormal bony edema on inversion recovery sequences. Cord: The spinal cord is unremarkable with regards to their signal intensity and morphology. Discs: Multilevel disc desiccation is present. C2-C3: No significant disc pathology. The spinal canal is patent. Bilateral facet and uncovertebral joint arthropathy are present with mild bilateral neural foraminal stenosis. C3-C4: A disc osteophyte complex is present with mild spinal canal stenosis. Bilateral facet and unc overtebral joint arthropathy are present with mild bilateral neural foraminal stenosis. C4-C5: A disc osteophyte complex is present which minimally narrows the ventral subarachnoid space. Bilateral facet and uncovertebral joint arthropathy are present with moderate right neural foraminal stenosis. The left neural foramen is patent. C5-C6: A disc osteophyte complex is present with moderate to severe spinal canal stenosis. Bilateral facet and uncovertebral joint arthropathy are present with moderate to severe bilateral neural dina inal stenosis. C6-C7: No significant disc pathology. The spinal canal is patent. No neural foraminal stenosis. C7-T1: No significant disc pathology. The spinal canal is patent. No neural foraminal stenosis. Other: None. IMPRESSION: C5-C6 moderate to severe spinal canal stenosis with associated moderate to severe bilateral neural fo raminal stenosis.
== END | disposition home or self-care (01) ==
LOC: RADMRIMAIN 11:35
PROVIDERS: ATTEND Family Medicine
DX: M48.02 Spinal stenosis, cervical region (principal); M43.12 Spondylolisthesis, cervical region
CPT/HCPCS: 72141

== ENCOUNTER → 2023-03-17 | Outpatient (CLI) | payer MEDICARE ==
--- NOTE | 2023-03-18 00:13 | BD ---
EXAMINATION TYPE: Axial Bone Density DATE OF EXAM: 03/17/2023 CLINICAL HISTORY: 67 years old Female. ICD-10 CODE: N95.1 MENOPAUSAL AND FEMALE CLIMACTERIC STATES Height: 63.5 in Weight: 142 lbs FRAX RISK QUESTIONS: History of Fracture in Adulthood: ribs age 53 Secondary Osteoporosis: 3. Menopause before 45: age 39 RISK FACTORS HISTORY OF: Active: yes Diet low in dairy products/other sources of calcium: yes Postmenopausal woman: age 39 MEDICATIONS: Additional Medications: blood pressure meds, cholesterol meds, aspirin, stomach meds, insulin, diabet es meds, lisinopril, atorvastatin, magnesium, vit d, vit b12, Additional History: breast cancer with chemo and radiation EXAM MEASUREMENTS: Bone mineral densitometry was performed using the [employer] System. Bone mineral density as measured about the Lumbar spine is: ----- L1-L4(G/cm2): 1.369 T Score Values are as follows: ----- L1: 0.8 ----- L2: 1.4 ----- L3: 2.1 ----- L4: 1.9 ----- L1-L4: 1.6 Z Score Values are as follows: ----- L1: 2.5 ----- L2: 3.1 ----- L3: 3.8 ----- L4: 3.6 ----- L1-L4: 3.3 Bone mineral density has: Increased 4.9% since study of: 08/31/2008 Bone mineral density about the R hip (g/cm2): 1.038 Bone mineral density about the L hip (g/cm2): 1.083 T Score values are as follows: -----R Neck: 0.6 -----L Neck: 1.5 -----R Total: 0.2 -----L Total: 0.6 Z Score values are as follows: -----R Neck: 2.3 -----L Neck: 3.2 -----R Total: 1.7 -----L Total: 2.1 Bone mineral density has: Increased 0.5% since study of: 08/31/2008 FRAX%s: The graph provided illustrates a 10.1% chance for a major osteoporotic fx and a 0.3% chance f or the hips probability for fx in 10 years time. IMPRESSION: Normal (Values between +1 and -1 indicate normal bone mass). Consider repeating this study in 5 year s or sooner if there is some new clinical indication. NOTE: T-SCORE=SD OF THE YOUNG ADULT MEAN.
== END | disposition home or self-care (01) ==
LOC: RADBDWWP 12:51
PROVIDERS: ATTEND Internal Medicine
DX: N95.1 Menopausal and female climacteric states (principal)
CPT/HCPCS: 77080

== ENCOUNTER → 2023-03-17 | Outpatient (CLI) | payer MEDICARE ==
--- NOTE | 2023-03-18 07:26 | MM ---
Reason for Exam: Screening (asymptomatic). Last mammogram was performed 1 year(s) and 3 month(s) ago. Patient History: Menarche at age 8. First Full-Term at age 36. Late child-bearing (after 30). Postmenopausal. Breast cancer, right, age 51. Previous chest radiation therapy at age 51. Previous chemotherapy at age 51. Tamoxifen, starting at age 52 for 4 years. 08/30/2006, Malignant Excisional Biopsy on the right side. 08/30/2006, Lumpectomy on the Right side. 1993, Excisional Biopsy on the Right side. 07/30/2006, Malignant Core Biopsy on the right side. 02/27/1998, Benign Excisional Biopsy on the right side. Paternal grandmother had breast cancer. Maternal cousin had breast cancer. Prior Study Comparison: 10/05/2018 Screening Mammogram, [place]. 06/11/2020 Bilateral Diagnostic Mammogram, [facility]. 12/11/2021 Bilateral Screening Mammogram, [facility]. Tissue Density: There are scattered fibroglandular densities. Findings: Analyzed By CAD. Bilateral benign appearing consultations. Right breast clips. There is no suspicious group of microcalcifications or new suspicious mass in either breast. Overall Assessment: Benign, BI-RAD 2 Management: Screening Mammogram of both breasts in [address] [facility] will attempt to contact patient to return for supplemental views and ultrasound if indicated. Patient should continue monthly self-breast exams. A clinical breast exam by your physician is recommended on an annual basis. This exam should not preclude additional follow-up of suspicious palpable abnormalities. Note on Bibi scores and lifetime risk: 1. A Bibi score greater than 3% is considered moderate risk. If this is the case, consider specialist referral to assess eligibility for a risk reducing agent. 2. If overall lifetime risk for the development of breast cancer is 20% or higher, the patient may qualify for future screening with alternating mammogram and breast MRI. Electronically signed and approved by: Emanuel Zambrano DO
== END | disposition home or self-care (01) ==
LOC: RADMAMWWP 12:49
PROVIDERS: ATTEND Family Medicine
DX: Z12.31 Encounter for screening mammogram for malignant neoplasm of breast (principal); Z78.0 Asymptomatic menopausal state; Z80.3 Family history of malignant neoplasm of breast
CPT/HCPCS: 77063; 77067

== ENCOUNTER → 2023-09-11 | Outpatient (CLI) | payer MEDICARE ==
[2023-09-11 09:14] LABS: Ionized Calcium 5.4 mg/dL (4.5-5.3)
[2023-09-11 09:27] LABS: ALT 23 U/L (4-34); AST 29 U/L (14-36); African American GFR (CKD) 86 (>60 ml/min/1.73 sqM); Albumin 4.5 g/dL (3.5-5.0); Albumin/Globulin Ratio 1.7; Alkaline Phosphatase 53 U/L (38-126); Anion Gap 8 mmol/L; Blood Urea Nitrogen 26 mg/dL (7-17); Calcium 9.9 mg/dL (8.4-10.2); Carbon Dioxide 26 mmol/L (22-30); Chloride 103 mmol/L (98-107); Globulin 2.7 g/dL; Glucose 129 mg/dL (74-99); Non-African American GFR(CKD) 74 (>60 ml/min/1.73 sqM); Potassium 5.2 mmol/L (3.5-5.1); Sodium 137 mmol/L (137-145); Total Bilirubin 0.5 mg/dL (0.2-1.3); Total Protein 7.2 g/dL (6.3-8.2)
[2023-09-11 13:48] LABS: LDL Cholesterol,Calculated 81.2 mg/dL (0.0-131.0)
[2023-09-11 14:47] LABS: Microalbumin Creatinine Ratio <15 mg/g Cr (0-30); Urine Creatinine 82.7 mg/dL (28.0-217.0)
== END | disposition home or self-care (01) ==
LOC: LABWHC1 08:22
PROVIDERS: ATTEND Internal Medicine
DX: E11.65 Type 2 diabetes mellitus with hyperglycemia (principal); D86.0 Sarcoidosis of lung
CPT/HCPCS: 36415; 80053; 80061; 82043; 82164; 82330; 82570; 83036

== ENCOUNTER → 2023-12-25 | Outpatient (CLI) | payer MEDICARE ==
[2023-12-25 13:30] LABS: HCT 41.5 % (37.2-46.3); HGB 12.9 g/dL (12.0-15.0); MCH 27.4 pg (27.0-32.0); MCHC 31.1 g/dL (32.0-37.0); MCV 88.1 FL (80.0-97.0); Mean Platelet Volume 10.1 FL (9.5-12.2); NRBC Per 100 WBC 0 X 10*3/uL (0.00-0.01); Platelet Count 447 X 10*3/uL (140-440); RBC 4.71 X 10*6/uL (4.10-5.20); RDW 14.1 % (11.5-14.5); WBC 4.43 X 10*3/uL (4.50-10.00)
[2023-12-25 13:49] LABS: Magnesium 1.2 mg/dL (1.5-2.4)
[2023-12-25 13:50] LABS: % Iron Saturation 20.37 (12.00-45.00); ALT 28 U/L (8-44); AST 28 U/L (13-35); Albumin 4.7 g/dL (3.8-4.9); Albumin/Globulin Ratio 2.14 Ratio (1.60-3.17); Alkaline Phosphatase 45 U/L (41-126); Blood Urea Nitrogen 26.8 mg/dL (9.0-27.0); Calcium 10.5 mg/dL (8.7-10.3); Carbon Dioxide 20.7 mmol/L (21.6-31.8); Chloride 98 mmol/L (96-109); Ferritin 97.4 ng/mL (10.0-291.0); Globulin 2.2 g/dL (1.6-3.3); Glucose 162 mg/dL (70-110); Iron 89 UG/DL (50-170); Potassium 4.6 mmol/L (3.5-5.5); Sodium 139 mmol/L (135-145); T4, Free (Free Thyroxine) 1.25 ng/dL (0.80-1.80); Total Bilirubin 0.4 mg/dL (0.3-1.2); Total Iron Binding Capacity 437 UG/DL (228-460); Total Protein 6.9 g/dL (6.2-8.2)
== END | disposition home or self-care (01) ==
LOC: LABWHC1 08:19
PROVIDERS: ATTEND Family Medicine
DX: I10 Essential (primary) hypertension (principal); E11.9 Type 2 diabetes mellitus without complications; D50.9 Iron deficiency anemia, unspecified; W57.XXXA Bitten or stung by nonvenomous insect and other nonvenomous arthropods, initial encounter
CPT/HCPCS: 36415; 80053; 82728; 83540; 83550; 83735; 84439; 84443; 85027; 86618

== ENCOUNTER → 2024-02-19 | Outpatient (CLI) | payer MEDICARE ==
[2024-02-19 13:01] LABS: ALT 23 U/L (8-44); AST 25 U/L (13-35); Albumin 4.5 g/dL (3.8-4.9); Albumin/Globulin Ratio 2.05 Ratio (1.60-3.17); Alkaline Phosphatase 39 U/L (41-126); BUN/Creat Ratio 28.78 Ratio (12.00-20.00); Blood Urea Nitrogen 25.9 mg/dL (9.0-27.0); Calcium 9.6 mg/dL (8.7-10.3); Carbon Dioxide 26.2 mmol/L (21.6-31.8); Chloride 100 mmol/L (96-109); Chol/HDL Ratio 3.39 Ratio; Globulin 2.2 g/dL (1.6-3.3); Glucose 100 mg/dL (70-110); LDL Cholesterol,Calculated 73.5 mg/dL (0.0-131.0); Magnesium 1.5 mg/dL (1.5-2.4); Potassium 4.8 mmol/L (3.5-5.5); Sodium 136 mmol/L (135-145); Total Bilirubin 0.3 mg/dL (0.3-1.2); Total Protein 6.7 g/dL (6.2-8.2)
[2024-02-19 13:10] LABS: Microalbumin Creatinine Ratio <56 mg/g Cr (0-30); Urine Creatinine 21.3 mg/dL (28.0-217.0)
== END | disposition home or self-care (01) ==
LOC: LABWHC1 08:41
PROVIDERS: ATTEND Internal Medicine
DX: E11.65 Type 2 diabetes mellitus with hyperglycemia (principal); I10 Essential (primary) hypertension; E78.2 Mixed hyperlipidemia; N95.1 Menopausal and female climacteric states; E61.2 Magnesium deficiency; R80.9 Proteinuria, unspecified
CPT/HCPCS: 36415; 80053; 80061; 82043; 82570; 83036; 83735